=== PATIENT | male | born 1990 | race African-American/Black ===

== ENCOUNTER 2024-06-29 19:57 | Emergency (ER) | payer OTHER ==
[~2024-06-29] VITALS: Ht 172.7 cm; Wt 80.0 kg
[2024-06-29 20:03] VITALS: TEMP 36.7; O2SAT 98
[2024-06-29] MEDS: TRANEXAMIC ACID 1,000MG/10ML IV ONE ×2 (20:30→23:06)
[2024-06-29] MEDS: TETANUS, DIPHTHERIA, PERTUSSIS VAC/PF 0.5ML (>10YR OLD) IM ONE (21:58)
[2024-06-29 22:00] VITALS: BP 112/71; PULSE 92; RESP 18
[2024-06-29] MEDS: OXYCODONE HCL/ACETAMINOPHEN 5/325MG TABLET PO ONE (22:00)
[2024-06-29] MEDS: LIDOCAINE HCL 1% 20ML VIAL INFIL ONE (22:00)
== END 2024-06-30 01:26 | disposition home or self-care (01) ==
LOC: ER 19:57
DX: S51.811A Laceration without foreign body of right forearm, initial encounter (principal); F12.90 Cannabis use, unspecified, uncomplicated; X58.XXXA Exposure to other specified factors, initial encounter; Y93.89 Activity, other specified; Y92.89 Other specified places as the place of occurrence of the external cause; Y99.8 Other external cause status
CPT/HCPCS: 99284; 73090; 73130; 90715; 12004; 90471; J3490